=== PATIENT | male | born 1980 | race American Indian/Alaskan Native ===

== ENCOUNTER 2021-01-06 10:54 | Outpatient (CLI) | payer MEDICAID ==
--- NOTE | 2021-01-06 12:50 | Ultrasound Report ---
ULTRASOUND TESTICULAR DOPPLER COMPLETE HISTORY: Palpable left scrotal/groin lesion TECHNIQUE: Grayscale ultrasound with color and spectral Doppler imaging COMPARISON: None. FINDINGS: The right testicle measures 4.1 x 2.8 x 3.4 cm. The left testicle measures 3.9 x 3.1 x 2.6 cm. Tiny 3 mm cyst is noted in the right testicle. No evidence for testicular mass, calcifications or hyperemia. The epididymides are unremarkable. No significant hydrocele or varicocele. Spectral waveforms demonstrate arterial flow to both testicles. Targeted ultrasound in the left groin region demonstrates no abnormality. IMPRESSION: No significant abnormality. Signer Name: Maldonado Carter Jr, MD Signed: 01/06/2021 12:46 PM Workstation Name: [id number]
== END 2021-01-06 10:55 | disposition home or self-care (01) ==
LOC: US 10:54
PROVIDERS: ATTEND Internal Medicine
DX: C85.85 Other specified types of non-Hodgkin lymphoma, lymph nodes of inguinal region and lower limb (principal); N44.2 Benign cyst of testis
CPT/HCPCS: 93975